=== PATIENT | male | born 1970 | race American Indian/Alaskan Native ===

== ENCOUNTER 2019-07-27 11:47 | Inpatient (IN) | payer OTHER, BC ==
[2019-07-27] MEDS ORDERED: SODIUM CHLORIDE 0.9% 500 ML 500 ML IV STA (12:31)
[2019-07-27] MEDS ORDERED: SODIUM CHLORIDE 0.9% 1,000 ML IV STA ×2 (12:31→15:19)
[2019-07-27 13:17] LABS: Basophils % (A) 0 %; Eosinophils % (A) 0 %; HCT 51.9 % (39.0-53.0); HGB 16.6 gm/dL (13.0-17.5); Lymphocytes # (A) 0.6 k/uL (1.0-4.8); Lymphocytes % (A) 4 %; MCH 30.8 pg (25.0-35.0); MCHC 32.1 g/dL (31.0-37.0); MCV 96.2 fL (80.0-100.0); Mean Platelet Volume 6.5; Monocytes # (A) 0.7 k/uL (0-1.0); Monocytes % (A) 5 %; Neutrophils # (A) 13.9 k/uL (1.3-7.7); Neutrophils % (A) 91 %; Platelet Count 494 k/uL (150-450); RBC 5.39 m/uL (4.30-5.90); RDW 12.3 % (11.5-15.5); WBC 15.2 k/uL (3.8-10.6)
[2019-07-27 13:27] LABS: Albumin 4.8 g/dL (3.5-5.0); Calcium 9.6 mg/dL (8.4-10.2); INR 0.9 (<1.2); Magnesium 2.9 mg/dL (1.6-2.3); Partial Thromboplastin Time 28.6 sec (22.0-30.0); Potassium 5.6 mmol/L (3.5-5.1); Prothrombin Time 9.9 sec (9.0-12.0); Total Bilirubin 0.7 mg/dL (0.2-1.3); Total Protein 8.3 g/dL (6.3-8.2)
--- NOTE | 2019-07-27 13:34 | ED ---
Nausea/Vomiting/Diarrhea HPI - General Chief complaint: Nausea/Vomiting/Diarrhea Stated complaint: Vomitting Time Seen by Provider: 07/27/19 12:03 Source: patient Mode of arrival: ambulatory Limitations: no limitations - History of Present Illness Initial comments: 49-year-old male presenting today for chief complaint of generalized weakness. Patient states he has felt weak all over. He states he recently was treated by his primary care provider with amoxicillin for a left-sided ear infection. Patient states he is a diabetic and has had elevated sugars since he has had the ear infection. Patient denies fevers. Denies cough chest pain shortness of breath abdominal pain admits to nausea and an episode of vomiting this morning denies diarrhea. Patient states he started his lexapro on sunday for first time felt like his heart was racing so he was told to discontinue the medication however patient continued to have persistently high heart rate. Remaining ROS (-). - Related Data Home Medications Medication Instructions Recorded Confirmed Amoxic-Pot Clav 875-125Mg 1 tab PO Q12HR 07/27/19 07/27/19 [Augmentin 875-125] Atorvastatin [Lipitor] 10 mg PO HS 07/27/19 07/27/19 Canagliflozin [Invokana] 100 mg PO DAILY 07/27/19 07/27/19 Ciprofloxacin-Dexameth [Ciprodex 4 drops LEFT EAR BID 07/27/19 07/27/19 Otic Susp] Diltiazem HCl [Cardizem CD] 120 mg PO DAILY 07/27/19 07/27/19 Lisinopril [Zestril] 2.5 mg PO DAILY 07/27/19 07/27/19 Allergies Allergy/AdvReac Type Severity Reaction Status Date / Time gabapentin Allergy Unknown Verified 07/27/19 14:06 escitalopram [From Lexapro] AdvReac Unknown Verified 07/27/19 14:06 pregabalin [From Lyrica] AdvReac Unknown Verified 07/27/19 14:06 Review of Systems ROS Statement: Those systems with pertinent positive or pertinent negative responses have been documented in the HPI. ROS Other: All systems not noted in ROS Statement are negative. Past Medical History Past Medical History: Diabetes Mellitus, Hyperlipidemia, Hypertension History of Any Multi-Drug Resistant Organisms: None Reported Past Surgical History: No Surgical Hx Reported, Orthopedic Surgery Additional Past Surgical History / Comment(s): L ankle, L forearm, B knee Past Psychological History: No Psychological Hx Reported Smoking Status: Never smoker Past Alcohol Use History: None Reported Past Drug Use History: None Reported General Exam - General Exam Comments Initial Comments: General: The patient is awake and alert, in no distress, appears unwell Eye: Pupils are equal, round and reactive to light, extra-ocular movements are intact. No nystagmus. There is normal conjunctiva bilaterally. No signs of icterus. Ears, nose, mouth and throat: There are moist mucous membranes and no oral lesions. Tympanic membrane left-sided is erythematous with effusion external auditory canal within normal limits. Right tympanic membrane is not erythematous extraocular panel within normal limits. No tenderness to palpation of the mastoid Neck: The neck is supple, there is no tenderness or JVD. Cardiovascular: There is a regular rate and rhythm. No murmur, rub or gallop is appreciated. Respiratory: Lungs are clear to auscultation, respirations are non-labored, breath sounds are equal. No wheezes, stridor, rales, or rhonchi. Gastrointestinal: Soft, non-distended, non-tender abdomen without masses or organomegaly noted. There is no rebound or guarding present. Musculoskeletal: Normal ROM, no tenderness. Strength 5/5. Sensation intact. Pulses equal bilaterally 2+. Neurological: A&O x 3. CN II-XII intact grossly, There are no obvious motor or sensory deficits. Coordination appears grossly intact. Speech is normal. Skin: Skin is warm and dry and no rashes or lesions are noted. No LE edema. Psychiatric: Cooperative, appropriate mood & affect, normal judgment. Limitations: no limitations Course Vital Signs 07/27/19 07/27/19 07/27/19 11:54 13:00 14:00 Temperature 97.4 F L Pulse Rate 83 111 H 108 H Respiratory 18 18 18 Rate Blood Pressure 131/82 135/68 126/72 O2 Sat by Pulse 98 98 96 Oximetry 07/27/19 07/27/19 07/27/19 14:29 15:00 15:17 Temperature Pulse Rate 112 H 112 H 107 H Respiratory 17 18 17 Rate Blood Pressure 135/68 130/72 135/68 O2 Sat by Pulse 98 Oximetry 07/27/19 16:00 Temperature 98.0 F Pulse Rate 105 H Respiratory 18 Rate Blood Pressure 139/76 O2 Sat by Pulse 96 Oximetry Medical Decision Making - Medical Decision Making 49-year-old male presenting for generalized weakness. History of diabetes. Found to be in DKA. Patient's given insulin bolus IV fluids and placed on insulin drip protocol is to switch to D5 for fluids when sugar is below 250. Patient otherwise appears stable and will be admitted to the floor. I discussed the case with attending provider Dr. King reviewing laboratory studies. Who is agreeable with admission. Dr. Gonzalez accepted admission after speaking with Dr. King. Total was 35 minutes of critical care was spent on patient including reviewing labs, reevaluations, discussing case with other providers, documentation - Lab Data Result diagrams: 07/27/19 13:02 07/27/19 13:02 Lab Results 07/27/19 07/27/19 07/27/19 Range/Units 13:02 13:02 13:02 WBC 15.2 H (3.8-10.6) k/uL RBC 5.39 (4.30-5.90) m/uL Hgb 16.6 (13.0-17.5) gm/dL Hct 51.9 (39.0-53.0) % MCV 96.2 (80.0-100.0) fL MCH 30.8 (25.0-35.0) pg MCHC 32.1 (31.0-37.0) g/dL RDW 12.3 (11.5-15.5) % Plt Count 494 H (150-450) k/uL Neutrophils % 91 % Lymphocytes % 4 % Monocytes % 5 % Eosinophils % 0 % Basophils % 0 % Neutrophils # 13.9 H (1.3-7.7) k/uL Lymphocytes # 0.6 L (1.0-4.8) k/uL Monocytes # 0.7 (0-1.0) k/uL Eosinophils # 0.0 (0-0.7) k/uL Basophils # 0.0 (0-0.2) k/uL PT (9.0-12.0) sec INR (<1.2) APTT (22.0-30.0) sec Sodium 129 L (137-145) mmol/L Potassium 5.6 H (3.5-5.1) mmol/L Chloride 91 L (98-107) mmol/L Carbon Dioxide 6 L* (22-30) mmol/L Anion Gap 32 mmol/L BUN 32 H (9-20) mg/dL Creatinine 1.83 H (0.66-1.25) mg/dL Est GFR (CKD-EPI)AfAm 49 (>60 ml/min/1.73 sqM) Est GFR (CKD-EPI)NonAf 42 (>60 ml/min/1.73 sqM) Glucose 612 H* (74-99) mg/dL POC Glucose (mg/dL) (75-99) mg/dL POC Glu Sack Cleaning Hand ID Lactic Ac Sepsis Rflx Plasma Lactic Acid Saúl 4.2 H* (0.7-2.0) mmol/L Calcium 9.6 (8.4-10.2) mg/dL Magnesium 2.9 H (1.6-2.3) mg/dL Total Bilirubin 0.7 (0.2-1.3) mg/dL AST 13 L (17-59) U/L ALT 22 (21-72) U/L Alkaline Phosphatase 89 (38-126) U/L Troponin I (0.000-0.034) ng/mL Total Protein 8.3 H (6.3-8.2) g/dL Albumin 4.8 (3.5-5.0) g/dL TSH 0.071 L (0.465-4.680) mIU/L Acetone, Qual (Negative) Influenza Type A RNA (Not Detectd) Influenza Type B (PCR) (Not Detectd) 07/27/19 07/27/19 07/27/19 Range/Units 13:02 13:02 13:02 WBC (3.8-10.6) k/uL RBC (4.30-5.90) m/uL Hgb (13.0-17.5) gm/dL Hct (39.0-53.0) % MCV (80.0-100.0) fL MCH (25.0-35.0) pg MCHC (31.0-37.0) g/dL RDW (11.5-15.5) % Plt Count (150-450) k/uL Neutrophils % % Lymphocytes % % Monocytes % % Eosinophils % % Basophils % % Neutrophils # (1.3-7.7) k/uL Lymphocytes # (1.0-4.8) k/uL Monocytes # (0-1.0) k/uL Eosinophils # (0-0.7) k/uL Basophils # (0-0.2) k/uL PT 9.9 (9.0-12.0) sec INR 0.9 (<1.2) APTT 28.6 (22.0-30.0) sec Sodium (137-145) mmol/L Potassium (3.5-5.1) mmol/L Chloride (98-107) mmol/L Carbon Dioxide (22-30) mmol/L Anion Gap mmol/L BUN (9-20) mg/dL Creatinine (0.66-1.25) mg/dL Est GFR (CKD-EPI)AfAm (>60 ml/min/1.73 sqM) Est GFR (CKD-EPI)NonAf (>60 ml/min/1.73 sqM) Glucose (74-99) mg/dL POC Glucose (mg/dL) (75-99) mg/dL POC Glu Sack Cleaning Hand ID Lactic Ac Sepsis Rflx Plasma Lactic Acid Saúl (0.7-2.0) mmol/L Calcium (8.4-10.2) mg/dL Magnesium (1.6-2.3) mg/dL Total Bilirubin (0.2-1.3) mg/dL AST (17-59) U/L ALT (21-72) U/L Alkaline Phosphatase (38-126) U/L Troponin I <0.012 (0.000-0.034) ng/mL Total Protein (6.3-8.2) g/dL Albumin (3.5-5.0) g/dL TSH (0.465-4.680) mIU/L Acetone, Qual Positive (Negative) Influenza Type A RNA (Not Detectd) Influenza Type B (PCR) (Not Detectd) 07/27/19 07/27/19 07/27/19 Range/Units 13:36 14:08 15:06 WBC (3.8-10.6) k/uL RBC (4.30-5.90) m/uL Hgb (13.0-17.5) gm/dL Hct (39.0-53.0) % MCV (80.0-100.0) fL MCH (25.0-35.0) pg MCHC (31.0-37.0) g/dL RDW (11.5-15.5) % Plt Count (150-450) k/uL Neutrophils % % Lymphocytes % % Monocytes % % Eosinophils % % Basophils % % Neutrophils # (1.3-7.7) k/uL Lymphocytes # (1.0-4.8) k/uL Monocytes # (0-1.0) k/uL Eosinophils # (0-0.7) k/uL Basophils # (0-0.2) k/uL PT (9.0-12.0) sec INR (<1.2) APTT (22.0-30.0) sec Sodium (137-145) mmol/L Potassium (3.5-5.1) mmol/L Chloride (98-107) mmol/L Carbon Dioxide (22-30) mmol/L Anion Gap mmol/L BUN (9-20) mg/dL Creatinine (0.66-1.25) mg/dL Est GFR (CKD-EPI)AfAm (>60 ml/min/1.73 sqM) Est GFR (CKD-EPI)NonAf (>60 ml/min/1.73 sqM) Glucose (74-99) mg/dL POC Glucose (mg/dL) 433 H (75-99) mg/dL POC Glu Sack Cleaning Hand ID Armando Silva Lactic Ac Sepsis Rflx Y Plasma Lactic Acid Saúl (0.7-2.0) mmol/L Calcium (8.4-10.2) mg/dL Magnesium (1.6-2.3) mg/dL Total Bilirubin (0.2-1.3) mg/dL AST (17-59) U/L ALT (21-72) U/L Alkaline Phosphatase (38-126) U/L Troponin I (0.000-0.034) ng/mL Total Protein (6.3-8.2) g/dL Albumin (3.5-5.0) g/dL TSH (0.465-4.680) mIU/L Acetone, Qual (Negative) Influenza Type A RNA Not Detected (Not Detectd) Influenza Type B (PCR) Not Detected (Not Detectd) Disposition Clinical Impression: DKA, type 2, Weakness, Dehydration Disposition: ADMITTED IP TO THIS HOSP Condition: Stable Is patient prescribed a controlled substance at d/c from ED?: No Time of Disposition: :25 Decision to Admit Reason: Admit from EC Decision Date: 07/27/19 Decision Time: 15:25
[2019-07-27] MEDS ORDERED: INSULIN REGULAR BOLUS (FROM DRIP BAG) IV ONE (13:35)
[2019-07-27] MEDS ORDERED: SODIUM CHLORIDE 0.9% 1,000 ML IV ONE (13:36)
--- NOTE | 2019-07-27 13:41 | XR ---
EXAMINATION TYPE: XR chest 2V DATE OF EXAM: 07/27/2019 HISTORY: Weakness. REFERENCE: Previous study dated 12/26/2009. FINDINGS: There are linear opacities in both lung bases either representing scarring or atelectasis. Pleural space are clear. The heart is not enlarged. IMPRESSION: SCARRING VERSUS ATELECTASIS, BOTH LUNG BASES.
[2019-07-27] MEDS: INSULIN REGULAR 100 UNIT in SODIUM CHLORIDE 0.9% 100 ML IV SCH (14:06)
[2019-07-27] MEDS: SODIUM CHLORIDE 0.9% 1,000 ML IV SCH (14:06)
[2019-07-27 15:08] LABS: Glucose,Whole Blood 433 mg/dL (75-99)
[2019-07-27 15:08] LABS: Appearance,Urine Clear (Clear); Bilirubin,Urine Negative (Negative); Blood,Urine Trace (Negative); Color,Urine Light Yellow; Glucose,Urine (UA) 4+ (Negative); Hyaline Casts,Urine 4 /lpf (0-2); Leukocyte Esterase,Urine Negative (Negative); Mucus,Urine Rare /hpf; Nitrite,Urine Negative (Negative); Protein,Urine Trace (Negative); RBC,Urine <1 /hpf (0-5); Specific Gravity,Urine 1.018 (1.001-1.035); Squamous Epithelial Cell,Urine <1 /hpf (0-4); Urobilinogen,Urine <2.0 mg/dL (<2.0); WBC,Urine 1 /hpf (0-5)
[2019-07-27 15:13] LABS: Ketones,Urine 3+ (Negative)
--- NOTE | 2019-07-27 15:35 | P.HPIM ---
History of Present Illness H&P Date: 07/27/19 Chief Complaint: Weakness and fatigue The patient is a 49-year-old male with a past medical history of type 2 diabetes, essential hypertension that presented to the ER via private vehicle with his with chief complaints of increasing fatigue and weakness. The patient has had increasing polyuria polydipsia and weakness over the last week or so, the patient has also been diagnosed with a right ear infection by his PCP on Sunday and was started on amoxicillin and ofloxacin eardrops. The patient denies any chest pain , denies shortness of breath , but had episode of nausea and vomiting earlier today, he's had loss of appetite and decreased oral intake. The patient denies any cough or subjective fevers chills or night sweats, he denies dysuria or flank pain. Apparently his A1c was measured at approximately 11 on Sunday and the patient was switched from metformin to Invokana. On admission the patient had labs done in the ER white count was 15.2, platelets 494, sodium 129, potassium 5.6, serum bicarb 6, creatinine 1.83, serum blood sugar 612, lactic acid 4.2, magnesium 2.9, TSH 0.071, urinalysis trace protein 4+ glucose 3+ ketones. Acetone positive negative influenza A and B. The patient was given a loading dose of insulin started on insulin drip and given 3 1 L normal saline boluses Review of Systems Pertinent positives per HPI all other review is otherwise negative Past Medical History Past Medical History: Diabetes Mellitus, Hyperlipidemia, Hypertension History of Any Multi-Drug Resistant Organisms: None Reported Past Surgical History: No Surgical Hx Reported, Orthopedic Surgery Additional Past Surgical History / Comment(s): L ankle, L forearm, B knee Past Psychological History: No Psychological Hx Reported Smoking Status: Never smoker Past Alcohol Use History: None Reported Past Drug Use History: None Reported Medications and Allergies Home Medications Medication Instructions Recorded Confirmed Type Amoxic-Pot Clav 875-125Mg 1 tab PO Q12HR 07/27/19 07/27/19 History [Augmentin 875-125] Atorvastatin [Lipitor] 10 mg PO HS 07/27/19 07/27/19 History Canagliflozin [Invokana] 100 mg PO DAILY 07/27/19 07/27/19 History Ciprofloxacin-Dexameth [Ciprodex 4 drops LEFT EAR BID 07/27/19 07/27/19 History Otic Susp] Diltiazem HCl [Cardizem CD] 120 mg PO DAILY 07/27/19 07/27/19 History Lisinopril [Zestril] 2.5 mg PO DAILY 07/27/19 07/27/19 History Allergies Allergy/AdvReac Type Severity Reaction Status Date / Time gabapentin Allergy Unknown Verified 07/27/19 14:06 escitalopram [From Lexapro] AdvReac Unknown Verified 07/27/19 14:06 pregabalin [From Lyrica] AdvReac Unknown Verified 07/27/19 14:06 Physical Exam Vitals: Vital Signs Temp Pulse Resp BP Pulse Ox 07/27/19 15:17 107 H 17 135/68 07/27/19 14:29 112 H 17 135/68 07/27/19 11:54 97.4 F L 83 18 131/82 98 Intake and Output 07/27/19 07/27/19 07/27/19 06:59 14:59 22:59 Other: Weight 96.615 kg Constitutional: No acute distress, conversant, pleasant Eyes: Anicteric sclerae, moist conjunctiva, no lid-lag, PERRLA ENMT: NC/AT,Oropharynx clear, no erythema, dry mucous membranes, erythematous TM with bulging and inner effusion Neck:Supple, FROM, no masses, or JVD, No carotid bruits; No thyromegaly Lungs: Clear to auscultation, Clear to percussion, Normal respiratory effort, no accessory muscle use Cardiovascular: Regular rhythm tachycardic, No murmurs, gallops, or rubs no peripheral edema Abdominal: Soft Nontender, nom distended, no guarding, no rebound or rigidity, Normoactive bowel sounds No hepatomegaly, No splenomegaly, No palpable mass No abdominal wall hernia noted Skin: Normal temperature, tone, texture, turgor, No induration No subcutaneous nodules, No rash, lesions, No ulcers Extremities:No digital cyanosis No clubbing, Pedal pulses intact and symmetrical Radial pulses intact and symmetrical Normal gait and station, No calf tenderness Psychiatric: Alert and oriented to person, place and time, Appropriate affect Intact judgement Neuro: Muscles Strength 5/5 in all 4 extremities, Sensation to light touch grossly present throughout, Cranial nerves II-XII grossly intact. No focal sensory deficits Results CBC & Chem 7: 07/27/19 13:02 07/27/19 13:02 Labs: Abnormal Lab Results - Last 24 Hours (Table) 07/27/19 07/27/19 07/27/19 Range/Units 13:02 13:02 13:02 WBC 15.2 H (3.8-10.6) k/uL Plt Count 494 H (150-450) k/uL Neutrophils # 13.9 H (1.3-7.7) k/uL Lymphocytes # 0.6 L (1.0-4.8) k/uL Sodium 129 L (137-145) mmol/L Potassium 5.6 H (3.5-5.1) mmol/L Chloride 91 L (98-107) mmol/L Carbon Dioxide 6 L* (22-30) mmol/L BUN 32 H (9-20) mg/dL Creatinine 1.83 H (0.66-1.25) mg/dL Glucose 612 H* (74-99) mg/dL POC Glucose (mg/dL) (75-99) mg/dL Plasma Lactic Acid Saúl 4.2 H* (0.7-2.0) mmol/L Magnesium 2.9 H (1.6-2.3) mg/dL AST 13 L (17-59) U/L Total Protein 8.3 H (6.3-8.2) g/dL TSH 0.071 L (0.465-4.680) mIU/L Urine Protein (Negative) Urine Glucose (UA) (Negative) Urine Ketones (Negative) Urine Blood (Negative) Hyaline Casts (0-2) /lpf Urine Mucus (None) /hpf 07/27/19 07/27/19 Range/Units 15:06 Unknown WBC (3.8-10.6) k/uL Plt Count (150-450) k/uL Neutrophils # (1.3-7.7) k/uL Lymphocytes # (1.0-4.8) k/uL Sodium (137-145) mmol/L Potassium (3.5-5.1) mmol/L Chloride (98-107) mmol/L Carbon Dioxide (22-30) mmol/L BUN (9-20) mg/dL Creatinine (0.66-1.25) mg/dL Glucose (74-99) mg/dL POC Glucose (mg/dL) 433 H (75-99) mg/dL Plasma Lactic Acid Saúl (0.7-2.0) mmol/L Magnesium (1.6-2.3) mg/dL AST (17-59) U/L Total Protein (6.3-8.2) g/dL TSH (0.465-4.680) mIU/L Urine Protein Trace H (Negative) Urine Glucose (UA) 4+ H (Negative) Urine Ketones 3+ H (Negative) Urine Blood Trace H (Negative) Hyaline Casts 4 H (0-2) /lpf Urine Mucus Rare H (None) /hpf Assessment and Plan Assessment: DKA Uncontrolled type 2 diabetes Essential hypertension Acute kidney injury Left otitis media Hyperlipidemia Pseudohyponatremia Plan: The patient is admitted anticipated greater than 2 midnight stay with DKA possi stephen precipitated by a left ear infection after presenting with nausea and weakness found to have multiple electrolyte derangements including acute kidney injury pseudohyponatremia hyperkalemia and hypermagnesemia and severe anion gap metabolic acidosis secondary to DKA. 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 The patient is continued on amoxicillin and ciprofloxacin drops for his infection. We'll continue to monitor his clinical course patient to be transferred to the ICU. CODE STATUS: Full code Anticipated discharge; 2-[address]: Home Discussed plan of care with: Patient and his
[2019-07-27 15:36] LABS: ABG Base Excess -23.6 mmol/L; ABG Oxygen Saturation 98.8 % (94-97); ABG PO2 134 mmHg (83-108); ABG TCO2 7 mmol/L (19-24); Allen Test Performed? Yes
[2019-07-27 15:43] LABS: ABG HCO3 6 mmol/L (21-25); ABG PCO2 19 mmHg (35-45); ABG PH 7.11 (7.35-7.45)
[2019-07-27 16:12] LABS: Glucose,Whole Blood 413 mg/dL (75-99)
[2019-07-27 16:14] VITALS: RESP 18
[2019-07-27] MEDS ORDERED: ACETAMINOPHEN TAB 325 MG TAB PO PRN (17:06)
[2019-07-27] MEDS ORDERED: ONDANSETRON 4 MG/2 ML VIAL IVP PRN (17:06)
[2019-07-27] MEDS ORDERED: NALOXONE 0.4 MG/ML 1 ML VIAL IV PRN (17:06)
[2019-07-27 17:09] LABS: Glucose,Whole Blood 305 mg/dL (75-99)
[2019-07-27 17:26] LABS: Potassium 4.3 mmol/L (3.5-5.1)
[2019-07-27 18:15] LABS: Glucose,Whole Blood 230 mg/dL (75-99)
[2019-07-27 19:01] LABS: Glucose,Whole Blood 177 mg/dL (75-99)
[2019-07-27 20:03] LABS: Glucose,Whole Blood 179 mg/dL (75-99)
[2019-07-27 20:36] LABS: African American GFR (CKD) >90 (>60 ml/min/1.73 sqM); Anion Gap 15 mmol/L; Blood Urea Nitrogen 27 mg/dL (9-20); Carbon Dioxide 13 mmol/L (22-30); Chloride 106 mmol/L (98-107); Glucose 136 mg/dL (74-99); Non-African American GFR(CKD) >90 (>60 ml/min/1.73 sqM); Potassium 4.4 mmol/L (3.5-5.1); Sodium 134 mmol/L (137-145)
[2019-07-27 20:59] LABS: Glucose,Whole Blood 125 mg/dL (75-99)
[2019-07-27 22:03] LABS: Glucose,Whole Blood 99 mg/dL (75-99)
[2019-07-27] MEDS: D5-0.45% NACL WITH KCL 20MEQ/L 1,000 ML IV SCH (22:30)
[2019-07-27] MEDS: ATORVASTATIN 10 MG TAB PO SCH (22:35)
[2019-07-27] MEDS: CIPROFLOXACIN-DEXAMETH 0.3-0.1% DROPS 7.5 ML BTL LEFT EAR SCH (22:36)
[2019-07-27] MEDS: AMOXICILLIN 875 MG TAB PO SCH (22:36)
[2019-07-27 23:22] LABS: Glucose,Whole Blood 155 mg/dL (75-99)
[2019-07-28 00:17] LABS: Glucose,Whole Blood 163 mg/dL (75-99)
[2019-07-28] MEDS: INSULIN REGULAR 100 UNIT in SODIUM CHLORIDE 0.9% 100 ML IV SCH ×3 (01:15→16:00)
[2019-07-28 01:16] LABS: Glucose,Whole Blood 175 mg/dL (75-99)
[2019-07-28 02:16] LABS: Glucose,Whole Blood 181 mg/dL (75-99)
[2019-07-28 03:15] LABS: Glucose,Whole Blood 178 mg/dL (75-99)
[2019-07-28 04:15] LABS: Glucose,Whole Blood 164 mg/dL (75-99)
[2019-07-28 05:15] LABS: Glucose,Whole Blood 177 mg/dL (75-99)
[2019-07-28 06:15] LABS: African American GFR (CKD) >90 (>60 ml/min/1.73 sqM); Anion Gap 12 mmol/L; Blood Urea Nitrogen 19 mg/dL (9-20); Carbon Dioxide 15 mmol/L (22-30); Chloride 106 mmol/L (98-107); Glucose 155 mg/dL (74-99); Non-African American GFR(CKD) >90 (>60 ml/min/1.73 sqM); Phosphorus 2.5 mg/dL (2.5-4.5); Potassium 4.2 mmol/L (3.5-5.1); Sodium 133 mmol/L (137-145)
[2019-07-28 06:15] LABS: Glucose,Whole Blood 177 mg/dL (75-99)
[2019-07-28 07:22] LABS: Glucose,Whole Blood 177 mg/dL (75-99)
[2019-07-28 07:31] LABS: Cholesterol 182 mg/dL (<200); HDL Cholesterol 41 mg/dL (40-60); LDL Cholesterol,Calculated 119 mg/dL (0-99); Triglycerides 109 mg/dL (<150)
[2019-07-28] MEDS: SODIUM CHLORIDE 0.9% 1,000 ML IV SCH ×3 (07:46→08:41)
[2019-07-28] MEDS: D5-0.45% NACL WITH KCL 20MEQ/L 1,000 ML IV SCH ×3 (07:47→12:26)
[2019-07-28 08:17] LABS: Glucose,Whole Blood 166 mg/dL (75-99)
[2019-07-28] MEDS: DILTIAZEM CD 120 MG CAP.ER.24H PO SCH (08:41)
[2019-07-28] MEDS: LISINOPRIL 2.5 MG TAB PO SCH (08:41)
[2019-07-28] MEDS: CIPROFLOXACIN-DEXAMETH 0.3-0.1% DROPS 7.5 ML BTL LEFT EAR SCH ×2 (08:41→22:42)
[2019-07-28] MEDS: AMOXICILLIN 875 MG TAB PO SCH ×2 (08:41→22:41)
[2019-07-28 09:33] LABS: Glucose,Whole Blood 140 mg/dL (75-99)
--- NOTE | 2019-07-28 10:16 | CDI ---
Documentation Clarification Form Date: 07/28/2019 9:48:44 AM From: Katrin Hamm RN, CCDS Admit Date: 07/27/2019 3:23:00 PM Patient Name: Oscar Chen Visit Number: [id number] Discharge Date: ATTENTION: The Clinical Documentation Specialists (CDI) and [facility] Coding Staff appreciate your assistance in clarifying documentation. Please respond to the clarification below the line at the bottom and electronically sign. The CDI & [facility] Coding staff will review the response and follow-up if needed. Please note: Queries are made part of the Legal Health Record. If you have any questions, please contact the author of this message via ITS. Dr. Wade Gonzalez The patient has uncontrolled type 2diabetes, as indicated in your History and Physical on 07/27/19, and additional clarification is needed. History/Risk Factors: Diabetes Mellitus, Hypertension Clinical Indicators: 49-year-old male present with weakness and fatigue. He had episode of nausea and vomiting and loss of appetite and decreased oral intake. On admission serum blood sugar 612, lactic acid 4.2, urinalysis trace protein, 4+ glucose, 3+ Ketones, Acetone positive. A1c of 11. 128 glucose: 433, 177, 155 Treatment: IV Fluid bolus Monitor Blood sugars with every 4 hours electrolyte monitoring Insulin drip In order to capture the severity of Illness and necessary documentation specificity, please clarify: Uncontrolled, type 2 Diabetes Mellitus, with hyperglycemia Uncontrolled, type 2 Diabetes Mellitus, with Hypoglycemia Other, please specify Unable to Determine (Last Revision: May 2017) Uncontrolled Type 2 Diabetes with hyperglycemia MTDD
[2019-07-28 10:17] LABS: Glucose,Whole Blood 157 mg/dL (75-99)
[2019-07-28 11:15] LABS: Glucose,Whole Blood 159 mg/dL (75-99)
[2019-07-28 11:29] LABS: Carbon Dioxide 16 mmol/L (22-30); Chloride 106 mmol/L (98-107); Glucose 158 mg/dL (74-99); Sodium 134 mmol/L (137-145)
[2019-07-28 11:30] LABS: African American GFR (CKD) >90 (>60 ml/min/1.73 sqM); Anion Gap 12 mmol/L; Blood Urea Nitrogen 16 mg/dL (9-20); Non-African American GFR(CKD) >90 (>60 ml/min/1.73 sqM); Phosphorus 2.1 mg/dL (2.5-4.5)
[2019-07-28 11:37] LABS: Hemoglobin A1C 12.6 % (4.0-6.0)
[2019-07-28 12:10] LABS: Glucose,Whole Blood 176 mg/dL (75-99)
[2019-07-28 13:25] VITALS: BMI 27.6
[2019-07-28 13:26] LABS: Glucose,Whole Blood 266 mg/dL (75-99)
[2019-07-28 14:26] LABS: Glucose,Whole Blood 312 mg/dL (75-99)
[2019-07-28 15:23] LABS: Glucose,Whole Blood 281 mg/dL (75-99)
[2019-07-28 16:10] LABS: African American GFR (CKD) >90 (>60 ml/min/1.73 sqM); Anion Gap 11 mmol/L; Blood Urea Nitrogen 17 mg/dL (9-20); Calcium 8.5 mg/dL (8.4-10.2); Carbon Dioxide 16 mmol/L (22-30); Chloride 106 mmol/L (98-107); Glucose 286 mg/dL (74-99); Non-African American GFR(CKD) >90 (>60 ml/min/1.73 sqM); Potassium 4.2 mmol/L (3.5-5.1); Sodium 133 mmol/L (137-145)
[2019-07-28 16:26] LABS: Glucose,Whole Blood 232 mg/dL (75-99)
[2019-07-28 17:19] LABS: Glucose,Whole Blood 237 mg/dL (75-99)
[2019-07-28 18:25] LABS: Glucose,Whole Blood 319 mg/dL (75-99)
--- NOTE | 2019-07-28 18:33 | P.PN ---
Subjective Principal diagnosis: DKA Chart was reviewed patient was seen and examined. He is admitted with medical symptoms and signs and biochemical signs of diabetic ketoacidosis very severe. Bicarb 6 sugar of 600. His A1c is 12.1. He had recent left ear canal infection that the patient was sort of a boil that was drained by his PCP and he was placed on some antibiotics. Patient has been recently started on insulin AND WAS ON METFORMIN HE DOES NOT USE ANY INSULIN. Currently reported feeling much better. Nausea vomiting abdominal pain completely resolved and he's been able to totally intact. Left ear no drainage no warmth or pain although he reports some decreased hearing on that side. Patient is not probably the best historian and he is not volunteering much of the information does not participate very little history taking and examination and prefers to be left alone Objective - Vital Signs Vital signs: Vital Signs Temp 97.4 F L 07/28/19 08:00 Pulse 95 07/28/19 16:00 Resp 18 07/28/19 04:00 BP 125/59 07/28/19 16:00 Pulse Ox 95 07/28/19 12:00 Intake & Output 07/27/19 07/28/19 07/28/19 18:59 06:59 18:59 Intake Total 98.617 205.46 Output Total 2650 2650 Balance -2551.383 -2444.54 Weight 96.615 kg 95 kg 95 kg Intake: Intake, IV Titration 98.617 25.46 Amount Insulin Regular 100 unit 98.617 25.46 In Sodium Chloride 0.9% 100 ml @ 0.1 UNITS/KG/HR 9.758 mls/hr IV [id number] Rx#:[id number] Oral 180 Output: Urine 2650 2650 Other: Voiding Method Toilet Urinal # Voids 1 # Bowel Movements 1 - Constitutional General appearance: Present: no acute distress - Neck Neck: Absent: lymphadenopathy - Respiratory Respiratory: bilateral: CTA - Cardiovascular Rhythm: regular Heart sounds: normal: S1, S2 - Gastrointestinal General gastrointestinal: Present: normal bowel sounds, soft. Absent: tendernes s - Neurologic Neurologic: Present: CNII-XII intact. Absent: focal deficits - Psychiatric Psychiatric: Present: A&O x's 3 - Labs CBC & Chem 7: 07/27/19 13:02 07/28/19 15:30 Labs: Abnormal Lab Results - Last 24 Hours (Table) 07/27/19 07/27/19 07/27/19 Range/Units 13:02 19:00 19:55 Sodium 134 L (137-145) mmol/L Carbon Dioxide 13 L (22-30) mmol/L BUN 27 H (9-20) mg/dL Glucose 136 H (74-99) mg/dL POC Glucose (mg/dL) 177 H (75-99) mg/dL Hemoglobin A1c 12.6 H (4.0-6.0) % Phosphorus (2.5-4.5) mg/dL LDL Cholesterol, Calc (0-99) mg/dL 07/27/19 07/27/19 07/27/19 Range/Units 20:02 20:58 23:20 Sodium (137-145) mmol/L Carbon Dioxide (22-30) mmol/L BUN (9-20) mg/dL Glucose (74-99) mg/dL POC Glucose (mg/dL) 179 H 125 H 155 H (75-99) mg/dL Hemoglobin A1c (4.0-6.0) % Phosphorus (2.5-4.5) mg/dL LDL Cholesterol, Calc (0-99) mg/dL 07/28/19 07/28/19 07/28/19 Range/Units 00:16 01:15 02:15 Sodium (137-145) mmol/L Carbon Dioxide (22-30) mmol/L BUN (9-20) mg/dL Glucose (74-99) mg/dL POC Glucose (mg/dL) 163 H 175 H 181 H (75-99) mg/dL Hemoglobin A1c (4.0-6.0) % Phosphorus (2.5-4.5) mg/dL LDL Cholesterol, Calc (0-99) mg/dL 07/28/19 07/28/19 07/28/19 Range/Units 03:14 04:13 05:14 Sodium (137-145) mmol/L Carbon Dioxide (22-30) mmol/L BUN (9-20) mg/dL Glucose (74-99) mg/dL POC Glucose (mg/dL) 178 H 164 H 177 H (75-99) mg/dL Hemoglobin A1c (4.0-6.0) % Phosphorus (2.5-4.5) mg/dL LDL Cholesterol, Calc (0-99) mg/dL 07/28/19 07/28/19 07/28/19 Range/Units 05:18 05:18 06:14 Sodium 133 L (137-145) mmol/L Carbon Dioxide 15 L (22-30) mmol/L BUN (9-20) mg/dL Glucose 155 H (74-99) mg/dL POC Glucose (mg/dL) 177 H (75-99) mg/dL Hemoglobin A1c (4.0-6.0) % Phosphorus (2.5-4.5) mg/dL LDL Cholesterol, Calc 119 H (0-99) mg/dL 07/28/19 07/28/19 07/28/19 Range/Units 07:21 08:16 09:31 Sodium (137-145) mmol/L Carbon Dioxide (22-30) mmol/L BUN (9-20) mg/dL Glucose (74-99) mg/dL POC Glucose (mg/dL) 177 H 166 H 140 H (75-99) mg/dL Hemoglobin A1c (4.0-6.0) % Phosphorus (2.5-4.5) mg/dL LDL Cholesterol, Calc (0-99) mg/dL 07/28/19 07/28/19 07/28/19 Range/Units 10:16 10:42 11:09 Sodium 134 L (137-145) mmol/L Carbon Dioxide 16 L (22-30) mmol/L BUN (9-20) mg/dL Glucose 158 H (74-99) mg/dL POC Glucose (mg/dL) 157 H 159 H (75-99) mg/dL Hemoglobin A1c (4.0-6.0) % Phosphorus 2.1 L (2.5-4.5) mg/dL LDL Cholesterol, Calc (0-99) mg/dL 07/28/19 07/28/19 07/28/19 Range/Units 12:09 13:25 14:24 Sodium (137-145) mmol/L Carbon Dioxide (22-30) mmol/L BUN (9-20) mg/dL Glucose (74-99) mg/dL POC Glucose (mg/dL) 176 H 266 H 312 H (75-99) mg/dL Hemoglobin A1c (4.0-6.0) % Phosphorus (2.5-4.5) mg/dL LDL Cholesterol, Calc (0-99) mg/dL 07/28/19 07/28/19 07/28/19 Range/Units 15:22 15:30 16:25 Sodium 133 L (137-145) mmol/L Carbon Dioxide 16 L (22-30) mmol/L BUN (9-20) mg/dL Glucose 286 H (74-99) mg/dL POC Glucose (mg/dL) 281 H 232 H (75-99) mg/dL Hemoglobin A1c (4.0-6.0) % Phosphorus (2.5-4.5) mg/dL LDL Cholesterol, Calc (0-99) mg/dL 07/28/19 07/28/19 Range/Units 17:17 18:20 Sodium (137-145) mmol/L Carbon Dioxide (22-30) mmol/L BUN (9-20) mg/dL Glucose (74-99) mg/dL POC Glucose (mg/dL) 237 H 319 H (75-99) mg/dL Hemoglobin A1c (4.0-6.0) % Phosphorus (2.5-4.5) mg/dL LDL Cholesterol, Calc (0-99) mg/dL Microbiology - Last 24 Hours (Table) 07/27/19 13:02 Blood Culture - Preliminary Blood No Growth after 24 hours Assessment and Plan Assessment: 1. Diabetic ketoacidosis Improving Currently on insulin drip and IV fluids with dextrose We'll check stat BNP and work-related covert transitioning him to subcu insulin With A1c he certainly will need insulin therapy 2. Left ear canal infection He is currently on levofloxacin noted drops and amoxicillin I will obtain ENT consultation Currently no local or signs of involvement beyond ear canal: no headache no drainage or fever no leukocytosis in cultures are negative earlobe appears clear without any erythema swelling there is no travels tenderness there is no tenderness over his temporal bone Patient is nontoxic and nonseptic appearing 3. Hypertension Blood pressure stable next continue current medications
[2019-07-28 20:10] LABS: Glucose,Whole Blood 219 mg/dL (75-99)
[2019-07-28 20:34] LABS: Glucose,Whole Blood 204 mg/dL (75-99)
[2019-07-28 21:36] LABS: Glucose,Whole Blood 185 mg/dL (75-99)
[2019-07-28] MEDS ORDERED: INSULIN DETEMIR (LEVEMIR) 100 UNIT/ML SYR SQ SCH (22:00)
[2019-07-28] MEDS: ATORVASTATIN 10 MG TAB PO SCH (22:41)
[2019-07-29 05:57] LABS: Glucose,Whole Blood 193 mg/dL (75-99)
[2019-07-29 06:24] LABS: HCT 42.1 % (39.0-53.0); HGB 14.3 gm/dL (13.0-17.5); MCH 30.9 pg (25.0-35.0); MCHC 33.9 g/dL (31.0-37.0); MCV 91.4 fL (80.0-100.0); Mean Platelet Volume 7.1; Platelet Count 326 k/uL (150-450); RBC 4.61 m/uL (4.30-5.90); RDW 12.5 % (11.5-15.5); WBC 8.2 k/uL (3.8-10.6)
[2019-07-29 06:39] LABS: ALT 23 U/L (21-72); AST 13 U/L (17-59); African American GFR (CKD) >90 (>60 ml/min/1.73 sqM); Albumin 3.3 g/dL (3.5-5.0); Alkaline Phosphatase 64 U/L (38-126); Anion Gap 13 mmol/L; Blood Urea Nitrogen 14 mg/dL (9-20); Calcium 8.8 mg/dL (8.4-10.2); Carbon Dioxide 18 mmol/L (22-30); Chloride 105 mmol/L (98-107); Glucose 206 mg/dL (74-99); Non-African American GFR(CKD) >90 (>60 ml/min/1.73 sqM); Potassium 3.9 mmol/L (3.5-5.1); Sodium 136 mmol/L (137-145); Total Bilirubin 0.6 mg/dL (0.2-1.3)
[2019-07-29] MEDS: INSULIN ASPART (NovoLOG) 100 UNIT/ML VIAL SQ SCH ×6 (06:54→17:30)
[2019-07-29] MEDS: LISINOPRIL 2.5 MG TAB PO SCH (09:01)
[2019-07-29] MEDS: CIPROFLOXACIN-DEXAMETH 0.3-0.1% DROPS 7.5 ML BTL LEFT EAR SCH (09:01)
[2019-07-29] MEDS: DILTIAZEM CD 120 MG CAP.ER.24H PO SCH (09:01)
[2019-07-29] MEDS: AMOXICILLIN 875 MG TAB PO SCH (09:03)
[2019-07-29 11:05] VITALS: TEMP 98.5
[2019-07-29 11:47] LABS: Glucose,Whole Blood 156 mg/dL (75-99)
[2019-07-29 16:00] VITALS: BP 139/73
--- NOTE | 2019-07-29 16:51 | P.GSCN ---
History of Present Illness Consult date: 07/29/19 Reason for Consult: Left ear pain hearing loss Requesting physician: Yobani Deal History of present illness: This is a 49-year-old white male diabetic who was admitted with diabetic ketoacidosis. Patient was having ear pain for about 1 week which started as an upper respiratory tract infection. Patient states that he has diminished hearing in the left ear. It was tender at one time but the tenderness has left and now he has a fullness pressure and hearing loss in the left ear. He denies any otorrhea. Currently denies any tenderness. He did state it was tender previously but no longer is tender. He has had no previous infections in recent memory. Review of Systems - Constitutional Reports fatigue - EENT Ears, nose, mouth and throat: Reports as per HPI - Cardiovascular Denies chest pain - Respiratory Denies cough - Gastrointestinal Denies BRBPR - Genitourinary Denies discharge - Musculoskeletal Denies fractures - Integumentary Denies brittle nails - Neurological Denies burning pain - Psychiatric Denies anxiety - Endocrine Denies cold intolerance - Hematologic/Lymphatic Denies easy bleeding - Allergic/Immunologic Denies allergic rhinitis Past Medical History Past Medical History: Diabetes Mellitus, Hyperlipidemia, Hypertension History of Any Multi-Drug Resistant Organisms: None Reported Past Surgical History: Orthopedic Surgery Additional Past Surgical History / Comment(s): L ankle, L forearm, B knee Past Anesthesia/Blood Transfusion Reactions: No Reported Reaction Past Psychological History: No Psychological Hx Reported Smoking Status: Never smoker Past Alcohol Use History: None Reported Past Drug Use History: None Reported Medications and Allergies Home Medications Medication Instructions Recorded Confirmed Type Atorvastatin [Lipitor] 10 mg PO HS 07/27/19 07/27/19 History Diltiazem HCl [Cardizem CD] 120 mg PO DAILY 07/27/19 07/27/19 History Lisinopril [Zestril] 2.5 mg PO DAILY 07/27/19 07/27/19 History Acetaminophen Tab [Tylenol] 650 mg PO Q6HR PRN tab 07/29/19 Rx Ciprofloxacin-Dexameth [Ciprodex 4 drops LEFT EAR BID #1 bottle 07/29/19 Rx Otic Susp] INSULIN ASPART (NovoLOG) [NovoLOG 5 unit SQ AC-TID #1 vial 07/29/19 Rx (formulary)] Insulin Detemir (Levemir) [Levemir] 20 unit SQ HS #30 syr 07/29/19 Rx Allergies Allergy/AdvReac Type Severity Reaction Status Date / Time gabapentin Allergy Unknown Verified 07/27/19 14:06 escitalopram [From Lexapro] AdvReac Unknown Verified 07/27/19 14:06 pregabalin [From Lyrica] AdvReac Unknown Verified 07/27/19 14:06 Surgical - Exam Osteopathic Statement: *. No significant issues noted on an osteopathic structural exam other than those noted in the History and Physical/Consult. Vital Signs Temp Pulse Resp BP Pulse Ox 97.4 F L 83 18 131/82 98 07/27/19 11:54 07/27/19 11:54 07/27/19 11:54 07/27/19 11:54 07/27/19 11:54 - General well developed, well nourished, no distress - Eyes PERRL, normal ocular movement - ENT Head is normocephalic the face is symmetric there's no abnormal movements is no tenderness to the sinuses are mastoids is no nodules or eruptions or parasites and scalp. Auricles are well formed canals are clear the left tympanic membrane is erythematous with purulence seen behind the eardrum. The right side is unremarkable. Nose is patent. Mouth and throat no oral lesions are seen. Neck is unremarkable. normal pinna, normal nares, normal mucosa, no hearing loss, decreased hearing (Left ear), no nasal discharge, no mucosal exudate - Neck thyroid nodule: absent - Respiratory normal expansion - Integumentary no rash, no growths, no abnormal pigmentation - Neurologic normal coordination, normal sensation - Musculoskeletal normal gait, normal posture - Psychiatric oriented to time, oriented to person, oriented to place, speech is normal, m [place] intact Results - Labs 07/29/19 05:29 07/29/19 05:29 Abnormal Lab Results - Last 24 Hours (Table) 07/28/19 07/28/19 07/28/19 Range/Units 17:17 18:20 19:37 Sodium (137-145) mmol/L Carbon Dioxide (22-30) mmol/L Glucose (74-99) mg/dL POC Glucose (mg/dL) 237 H 319 H 219 H (75-99) mg/dL AST (17-59) U/L Total Protein (6.3-8.2) g/dL Albumin (3.5-5.0) g/dL 07/28/19 07/28/19 07/29/19 Range/Units 20:22 21:15 05:29 Sodium 136 L (137-145) mmol/L Carbon Dioxide 18 L (22-30) mmol/L Glucose 206 H (74-99) mg/dL POC Glucose (mg/dL) 204 H 185 H (75-99) mg/dL AST 13 L (17-59) U/L Total Protein 6.0 L (6.3-8.2) g/dL Albumin 3.3 L (3.5-5.0) g/dL 07/29/19 07/29/19 Range/Units 05:56 11:46 Sodium (137-145) mmol/L Carbon Dioxide (22-30) mmol/L Glucose (74-99) mg/dL POC Glucose (mg/dL) 193 H 156 H (75-99) mg/dL AST (17-59) U/L Total Protein (6.3-8.2) g/dL Albumin (3.5-5.0) g/dL Microbiology - Last 24 Hours (Table) 07/27/19 13:02 Blood Culture - Preliminary Blood No Growth after 48 hours Diabetes panel 07/29/19 Range/Units 05:29 Sodium 136 L (137-145) mmol/L Potassium 3.9 (3.5-5.1) mmol/L Chloride 105 (98-107) mmol/L Carbon Dioxide 18 L (22-30) mmol/L BUN 14 (9-20) mg/dL Creatinine 0.74 (0.66-1.25) mg/dL Glucose 206 H (74-99) mg/dL Calcium 8.8 (8.4-10.2) mg/dL AST 13 L (17-59) U/L ALT 23 (21-72) U/L Alkaline Phosphatase 64 (38-126) U/L Total Protein 6.0 L (6.3-8.2) g/dL Albumin 3.3 L (3.5-5.0) g/dL Calcium panel 07/29/19 Range/Units 05:29 Calcium 8.8 (8.4-10.2) mg/dL Albumin 3.3 L (3.5-5.0) g/dL Pituitary panel 07/29/19 Range/Units 05:29 Sodium 136 L (137-145) mmol/L Potassium 3.9 (3.5-5.1) mmol/L Chloride 105 (98-107) mmol/L Carbon Dioxide 18 L (22-30) mmol/L BUN 14 (9-20) mg/dL Creatinine 0.74 (0.66-1.25) mg/dL Glucose 206 H (74-99) mg/dL Calcium 8.8 (8.4-10.2) mg/dL Adrenal panel 07/29/19 Range/Units 05:29 Sodium 136 L (137-145) mmol/L Potassium 3.9 (3.5-5.1) mmol/L Chloride 105 (98-107) mmol/L Carbon Dioxide 18 L (22-30) mmol/L BUN 14 (9-20) mg/dL Creatinine 0.74 (0.66-1.25) mg/dL Glucose 206 H (74-99) mg/dL Calcium 8.8 (8.4-10.2) mg/dL Total Bilirubin 0.6 (0.2-1.3) mg/dL AST 13 L (17-59) U/L ALT 23 (21-72) U/L Alkaline Phosphatase 64 (38-126) U/L Total Protein 6.0 L (6.3-8.2) g/dL Albumin 3.3 L (3.5-5.0) g/dL Assessment and Plan (1) Acute otitis media with effusion of left ear Current Visit: Yes Status: Acute Code(s): H65.192 - OTHER ACUTE NONS UPPURATIVE OTITIS MEDIA, LEFT EAR SNOMED Code(s): 701697898 (2) Conductive hearing loss in left ear Current Visit: Yes Status: Acute Code(s): H90.12 - CONDCTV HEAR LOSS, UNI, L EFT EAR, W UNRESTR HEAR CNTRA SIDE SNOMED Code(s): 64773018 (3) Otalgia of left ear Current Visit: Yes Status: Acute Code(s): H92.02 - OTALGIA, LEFT EAR SNOMED Code(s): 36094950 Plan: This patient has a left-sided eustachian tube dysfunction and middle ear effusion with associated conductive hearing loss. He did have some ear tenderness but he has no further ear canal inflammation or tenderness. The etiology for the pain is unknown at this time a may be related to a resolved otitis externa or TMJ. Nevertheless today he is dealing with a left middle ear effusion and acute otitis media. We will treat him with Augmentin as an outpatient given him my card. He is to follow up with me after discharge. Time with Patient: Greater than 30
[2019-07-29 17:26] LABS: Glucose,Whole Blood 153 mg/dL (75-99)
[2019-07-29 18:33] VITALS: PULSE 90
--- NOTE | 2019-07-30 05:34 | DS ---
DISCHARGE SUMMARY DATE OF ADMISSION: 07/27/2019 DATE OF DISCHARGE: 07/29/2019 FINAL DIAGNOSES: 1. Acute diabetic ketoacidosis. 2. Left ear acute otitis media. 3. Hyperlipidemia. 4. Essential hypertension. HOSPITAL COURSE: This patient presented to the ER feeling weak and tired and recently lost some weight. Also was being treated by his PCP with amoxicillin for left ear infection. The patient has recently been on Invokana. Patient presented to the hospital, had a sugar of 612. Serum acetone was positive. The patient was put on IV Lasix drip. Responded well to the same. Sugars have come down. The patient will be sent home on Levemir and Humalog. I discussed with him today. Also, patient was seen by Dr. Granger from ENT and patient will be going home on Augmentin. Patient tolerating his diet. Educated. PHYSICAL EXAMINATION: On examination, temperature 98.5, pulse 95, respiration 16, blood pressure 129/74. LUNGS: Are clear. CARDIOVASCULAR: First and second sounds normal. INVESTIGATIONS: Creatinine 0.68 today. Accu-Cheks are 159, 176. CONSULTATION: Dr. Granger from ENT. DISCHARGE MEDICATIONS: 1. Lipitor 10 mg at bedtime. 2. Cardizem CD 120 mg p.o. daily. 3. Zestril 2.5 mg p.o. daily. 4. Tylenol 650 mg q.6 p.r.n. 5. Augmentin 875 one tab q.12, twenty tablets. 6. Ciprodex otic suspension 4 drops left ear b.i.d. 7. NovoLog 5 units subcu a.c. t.i.d. 8. Levemir 20 units subcu at bedtime. Accu-Cheks q.a.c. and at bedtime, keep log. Follow up with Dr. Granger in 2 weeks; follow up with Dr. Perkins in [place] on 08/04/2019 and follow up with Dr. Maisha Stewart in the next 3 to 5 days. Discussion and discharge planning more than 35 minutes. MMODL / IJN: [id number] /
== END 2019-07-29 17:43 | disposition home or self-care (01) | DRG 638 ==
LOC: EC 11:47 → 3SCARD 15:23
PROVIDERS: ADMIT Hospitalist; ATTEND Hospitalist
DX: E11.10 Type 2 diabetes mellitus with ketoacidosis without coma (principal); N17.9 Acute kidney failure, unspecified; E78.5 Hyperlipidemia, unspecified; E86.0 Dehydration; H65.192 Other acute nonsuppurative otitis media, left ear; H90.2 Conductive hearing loss, unspecified; I10 Essential (primary) hypertension; Z79.4 Long term (current) use of insulin; Z79.899 Other long term (current) drug therapy; E11.65 Type 2 diabetes mellitus with hyperglycemia; Z88.8 Allergy status to other drugs, medicaments and biological substances
CPT/HCPCS: 36415; 36600; 71046; 80048; 80051; 80053; 80061; 81001; 82009; 82565; 82805; 82947; 83036; 83605; 83735; 84100; 84443; 84484; 84520; 85025; 85027; 85610; 85730; 87040; 87070; 87205; 87502; 96360; 96361; 99285

== ENCOUNTER → 2024-04-04 | Outpatient (CLI) | payer BC | END | disposition home or self-care (01) | LOC: LABPRL 12:00 | PROVIDERS: ATTEND Family Medicine | DX: Z00.00 Encounter for general adult medical examination without abnormal findings (principal); I10 Essential (primary) hypertension; E11.9 Type 2 diabetes mellitus without complications | CPT/HCPCS: 80061; 80053; G0103 ==

== ENCOUNTER 2024-11-04 08:56 | Day surgery (SDC) | payer BC ==
[2024-10-31 10:48] VITALS: BMI 26.4
[~2024-11-04 08:56] MED LIST: LACTATED RINGERS 1,000 ML IV SCH
[2024-11-04 09:19] VITALS: RESP 16; TEMP 97.4
[2024-11-04 09:26] LABS: Glucose,Whole Blood 165 mg/dL (70-110)
[2024-11-04] MEDS: LACTATED RINGERS 1,000 ML IV ONE (09:27)
[2024-11-04] MEDS ORDERED: PROPOFOL 10 MG/ML 20 ML VIAL IV ONE (09:57)
--- NOTE | 2024-11-04 10:17 | P.PCN ---
Date of Procedure: 11/04/24 Procedure(s) Performed: BRIEF HISTORY: Patient is a 54-year-old pleasant white male scheduled for an elective colonoscopy as a part of screening for colon cancer. PROCEDURE PERFORMED: Colonoscopy with snare polypectomy. PREOPERATIVE DIAGNOSIS: Screening for colon cancer. IV sedation per Anesthesia. PROCEDURE: After informed consent was obtained, the patient, was brought into the endoscopy unit. IV sedation was administered by Anesthesia under continuous monitoring. Digital rectal examination was normal. Initially the Olympus CF-160 flexible video colonoscope was then inserted in the rectum, gradually advanced into the cecum without any difficulty. Careful examination was performed as the scope was gradually being withdrawn. Ileocecal valve and the appendiceal orifice were visualized and appeared normal. Prep was fair.. Mucosa of the cecum had a 1 cm polyp that was removed by snare polypectomy. Rest of the ascending colon, transverse colon, descending colon, sigmoid colon, and rectum appeared normal. Retroflexion was performed in the rectum and no lesions were seen. The patient tolerated the procedure well. IMPRESSION: 1 cm cecal polyp status post snare polypectomy Rest of the colon appeared normal RECOMMENDATIONS: Findings of this examination were discussed with the patient as well as her family. She was advised to follow-up with the biopsy results. If the biopsy reveals adenoma she can have repeat colonoscopy in 3 years..
[2024-11-04 10:35] VITALS: BP 126/82; PULSE 78
== END 2024-11-04 10:50 | disposition home or self-care (01) ==
LOC: ORWHC2ENDO 08:56
PROVIDERS: ATTEND Internal Medicine Gastroenterology
DX: Z12.11 Encounter for screening for malignant neoplasm of colon (principal); D12.0 Benign neoplasm of cecum; G47.33 Obstructive sleep apnea (adult) (pediatric); E78.5 Hyperlipidemia, unspecified; I10 Essential (primary) hypertension; E11.9 Type 2 diabetes mellitus without complications; Z79.899 Other long term (current) drug therapy; Z79.84 Long term (current) use of oral hypoglycemic drugs; Z98.890 Other specified postprocedural states; Z88.8 Allergy status to other drugs, medicaments and biological substances
CPT/HCPCS: 88305; 45385; J2704